=== PATIENT | male | born 1950 | race American Indian/Alaskan Native ===

== ENCOUNTER 2019-09-05 09:45 | Outpatient (CLI) | payer MEDICARE ==
--- NOTE | 2019-09-05 12:38 | Cat Scan Report ---
CTA CHEST WITH CONTRAST INDICATION / CLINICAL INFORMATION: H/O THORACIC AORTIC ANEURYSM REPAIR. TECHNIQUE: Axial CT images were obtained through the chest after injection of 100 mL Omnipaque 350 IV contrast. 3 plane MIP and/or 3D reconstructions were produced. All CT scans at this location are performed usin g CT dose reduction for BETZY by means of automated exposure control. COMPARISON: None available. FINDINGS: PULMONARY ARTERIES: No pulmonary emboli. 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 No dissection or h ematoma. Ascending thoracic aorta is ectatic measuring 4.0 cm on axial series 4 image 188. Mid aortic arch measures 3.5 cm in greatest diameter. Descending thoracic aorta is normal in caliber measuring 2.4 cm on axial image 188. HEART: No significant abnormality. CORONARY ARTERIES: No significant calcification. MEDIASTINUM / SHIRA: No significant abnormality. PLEURA: No pleural effusion. No pneumothorax. LUNGS: Mild prominence of bibasilar interstitial lung markings. No acute airspace disease. ADDITIONAL FINDINGS: None. UPPER ABDOMEN: No acute findings. SKELETAL STRUCTURES: No significant osseous abnormality. IMPRESSION: 1. No CT evidence for pulmonary embolism. 2. 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 3. 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 Signer Name: Evelyn Burton MD Signed: 09/05/2019 12:34 PM Workstation Name: [id number]
== END 2019-09-05 09:46 | disposition home or self-care (01) ==
LOC: CT 09:45
PROVIDERS: ATTEND Internal Medicine Cardiovascular Disease
DX: I77.810 Thoracic aortic ectasia (principal); Z98.890 Other specified postprocedural states
CPT/HCPCS: 36415; 71275; 82565; 84520; Q9967

== ENCOUNTER 2020-09-08 10:03 | Outpatient (CLI) | payer MEDICARE ==
[2020-09-08 11:37] LABS: Blood Urea Nitrogen 9 mg/dL (9-20)
--- NOTE | 2020-09-08 12:27 | Cat Scan Report ---
CTA CHEST (AORTIC ANEURYSM) INDICATION / CLINICAL INFORMATION: THORACIC AORTIC ANEURYSM REPAIR. TECHNIQUE: Axial CT images were obtained through the chest after injection of 100 cc IV contrast. 3 p arnulfo MIP and/or 3D reconstructions were produced. All CT scans at this location are performed using C T dose reduction for ALARA by means of automated exposure control. COMPARISON: 09/05/2019 FINDINGS: HEART: - Size: Normal. - [place] Coronary Atherosclerosis: Minimal. - Pericardium: No pericardial effusion. THORACIC AORTA: - Dissection: No dissection. - Aneurysm: Mild dilatation of the ascending aorta is again noted measuring 4.0 cm in diameter. The r emainder of the thoracic aorta is unremarkable. - Atherosclerosis: Minimal calcific plaques in the arch. GRE[place] VESSELS: No acute abnormality. No significant atherosclerosis. PULMONARY ARTERIES: No pulmonary emboli. CHEST VEINS: Single SVC of normal caliber as visualized to the right of midline. No significant abnor mality. ADDITIONAL CHEST FINDINGS: The lungs remain clear with no evidence for parenchymal disease, infiltrat e, effusion or pneumothorax. UPPER ABDOMEN: No signficant abnormality. SKELETAL SYSTEM: No significant abnormality. IMPRESSION: No acute process or change since 09/05/2019 is appreciated. Stable appearance of the 4.0 cm ascending aorta aneurysm. Signer Name: Toni Byers Jr, MD Signed: 09/08/2020 12:23 PM Workstation Name: [id number]
== END 2020-09-08 10:04 | disposition home or self-care (01) ==
LOC: CT 10:03
PROVIDERS: ATTEND Internal Medicine Cardiovascular Disease
DX: I77.810 Thoracic aortic ectasia (principal); I70.0 Atherosclerosis of aorta; Z98.890 Other specified postprocedural states
CPT/HCPCS: 36415; 71275; 82565; 84520; Q9967